=== PATIENT | female | born 1945 | race Caucasian/White ===

== ENCOUNTER → 2016-05-24 | Outpatient (CLI) | payer MEDICARE ==
[~2016-05-24] MED LIST: ASPI-558 PO; BENA20TA PO; CALC-603 PO; CHOL10003 PO; LEVO88TA39 PO; MULT1CAP47 PO; POTA99TA16 PO; SIMV40TA82 PO; TRIA1TAB72 PO
== END ==
LOC: WC.BC 13:15
DX: Z12.31 Encounter for screening mammogram for malignant neoplasm of breast (principal)
CPT/HCPCS: 77063; G0202

== ENCOUNTER 2016-10-16 09:57 | Observation (INO) ==
--- NOTE | 2016-10-16 10:08 | Emergency Department Report ---
Cardiac General HPI - General Chief Complaint: Arrhythmia/Palpitations Stated Complaint: rapid heartbeat Time Seen by Provider: 10/16/16 10:08 Source: patient Mode of arrival: ambulatory Limitations: no limitations - History of Present Illness HPI narrative: Patient is a 70-year-old female presents emergency room for evaluation of palpitations. Patient per chart review was seen in 2013 found to be in atrial fibrillation which spontaneously converted. Patient has seen her live out nanny Dr. Shields, however since the episodes were so few she felt that medications were not appropriate that time. Last conversation with Dr. Shields was one week ago. Since that time patient's had 8 or 9 episodes for on Sunday, 3 on Sunday, and 2 today. The one today lasted an hour, patient also felt very weak today so patient decided present to the ER for evaluation. On arrival patient states her symptoms are resolved and she is back to her "normal self". Occurred At: home Onset (ago): hour(s) - Related Data Home Medications Medication Instructions Recorded Confirmed Aspirin [Aspir 81] 81 mg PO DAILY #0 01/06/08 10/16/16 Benazepril HCl [Lotensin] 20 mg PO DAILY #0 01/06/08 10/16/16 Simvastatin 40 mg PO DAILY #0 01/06/08 10/16/16 Triamterene/Hydrochlorothiazid 1 tab PO DAILY #0 01/06/08 10/16/16 [Maxzide 37.5 mg-25 mg Tablet] Potassium Gluconate [Potassium] 99 mg PO TID #0 09/26/12 10/16/16 Calcium Carbonate/Vitamin D3 2 tab PO DAILY 10/16/16 10/16/16 [Calcium 600 + Vit D Tablet] Cholecalciferol (Vitamin D3) 2,000 unit PO DAILY 10/16/16 10/16/16 [Vitamin D3] Flaxseed Oil/[place] 3,6,9 [Sv 1 cap PO DAILY 10/16/16 10/16/16 Flaxseed Oil 1,300 mg Sftgl] Levothyroxine Sodium 75 mcg PO ACB 10/16/16 10/16/16 Multivitamin [Multivitamins] 1 cap PO DAILY 10/16/16 10/16/16 Polyvinyl Alcohol/Povidone O/S 1 drop EACH EYE TID PRN 10/16/16 10/16/16 [Refresh Classic] Allergies Allergy/AdvReac Type Severity Reaction Status Date / Time No Known Drug Allergies Allergy Unknown Verified 10/16/16 10:03 Review of Systems Constitutional: Reports: weakness (now resolved). Denies: fever, chills ENT: Denies: throat pain, dental pain Cardiovascular: Denies: chest pain, palpitations, dyspnea on exertion Respiratory: Denies: cough, dyspnea, wheezes Gastrointestinal: Denies: abdominal pain, nausea, vomiting Musculoskeletal: Denies: back pain Neurological: Denies: headache, weakness, numbness Psychiatric: Denies: anxiety, depression Endocrine: Denies: fatigue, heat or cold intolerance PFSH Patient Stated Medical History Hearing Loss Yes Other HEENT Yes: wears glasses Cardiac Arrhythmia Yes: afib Hypertension Yes Other GI Yes: DIVERTICULITIS Osteoarthritis Yes: HANDS, KNEES Post Menopausal Yes Surgical History: ASD repair - Social History Smoking status: Never smoker Substance use type: does not use Alcohol intake frequency: does not drink Physical Exam - General General appearance: alert, in no apparent distress - ENT ENT exam: Present: normal oropharynx, mucous membranes moist - Neck Neck exam: Present: full ROM - Chest Chest inspection: Present: symmetric chest wall rise. Absent: tenderness - Respiratory Respiratory exam: Present: normal lung sounds bilaterally. Absent: respiratory distress, wheezes, stridor - Cardiovascular Cardiovascular exam: Present: regular rate, normal rhythm, normal heart sounds - Abdominal Exam Abdominal exam: Present: soft. Absent: distention, tenderness - Extremities Exam Extremities exam: Present: normal capillary refill. Absent: tenderness - Back Exam Back exam: Present: full ROM. Absent: tenderness - Skin Skin exam: Present: warm, dry - Neurological Exam Neurological exam: Present: alert, oriented X3 - Psychiatric Psychiatric exam: Present: normal affect, normal mood Course Vital Signs Temperature 98.6 F 10/16/16 10:03 Pulse Rate 76 10/16/16 10:03 Respiratory Rate 19 10/16/16 10:03 Blood Pressure 108/69 10/16/16 10:03 Pulse Oximetry 95 10/16/16 10:03 Temperature 98.6 F 10/16/16 10:03 Pulse Rate 76 10/16/16 10:03 Respiratory Rate 19 10/16/16 10:03 Blood Pressure 108/69 10/16/16 10:03 Pulse Oximetry 95 10/16/16 10:03 Cardiac General - MDM Narrative Medical decision making narrative: Discuss case with Tess Theodore APRN. We'll admit observation status to surgical for antiarrhythmic therapy, patient is amenable to this - Differential Diagnosis Differential diagnosis: Likely: palpitations, anxiety, sinus tachycardia, artial fibrillation, artial flutter, ventricular premature beats, supraventricular tachycardia, ventricular tachycardia, WPW - Medical Records Attestation: I reviewed the patient's medical records. - Lab Data Attestation: I reviewed the patient's lab results. Result diagrams: 10/16/16 10:17 10/16/16 10:17 Lab Results 10/16/16 10/16/16 10/16/16 Range/Units 10: 10: 11:37 WBC 7.0 (4.5-11.0) T/MM3 RBC 5.26 H (4.00-5.20) M/MM3 Hgb 15.2 (12-16) GM/DL Hct 45.9 (36-46) % MCV 87.3 (80-100) UM3 MCH 28.9 (26-34) UUG MCHC 33.1 (31-37) GM/DL RDW Std Deviation 45.6 (36.9-50.2) FL Plt Count 238 (130-400) T/MM3 MPV 11.4 (9.4-12.4) UM3 Immature Gran % (Auto) 0.3 (0.0-0.5) % Neut % (Auto) 64.5 (33-66) % Lymph % (Auto) 25.0 (23-45) % [place] % (Auto) 6.9 (0-9.0) % Eos % (Auto) 3.0 (0-4) % Baso % (Auto) 0.3 (0-2) % Neut # 4.5 (1.8-7.7) T/MM3 Lymph # 1.8 (1-4.8) T/MM3 [place] # 0.5 (0-0.8) T/MM3 Eos # 0.2 (0-0.5) T/MM3 Baso # 0.0 (0-0.2) T/MM3 Abs Immat Gran (auto) 0.02 (0.00-0.03) T/MM3 Turbidity < 20 (0-20) Sodium 141 (134-144) MEQ/L Potassium 3.6 (3.6-5) MEQ/L Chloride 103 (98-107) MEQ/L Carbon Dioxide 28 (22-30) MEQ/L Anion Gap 10 (5-15) MEQ/L BUN 18.0 H (7-17) MG/DL Creatinine 1.0 (0.7-1.2) MG/DL GFR Calculation 55 BUN/Creatinine Ratio 18 (6-26) RATIO Glucose 114 H (65-110) MG/DL Calculated Osmolality 274 (261-280) MOSM/KG Calcium 9.3 (8.4-10.2) MG/DL Magnesium 1.9 (1.6-2.3) MG/DL Total Bilirubin 0.80 (0.20-1.30) MG/DL Icterus Index < 2 (0-7) AST 26 (14-36) U/L ALT 34 (9-52) U/L Alkaline Phosphatase 65 (38-126) U/L Troponin I < 0.012 (0-0.12) ng/ml Total Protein 7.2 (6.3-8.2) G/DL Albumin 4.3 (3.5-5.0) G/DL Globulin 2.9 (2.4-3.6) G/DL Albumin/Globulin Ratio 1.5 (1.1-2.2) RATIO TSH 4.48 (0.47-4.68) MIU/L Specimen Hemolysis 39 H (0-25) Ur Collection Type Urine, clean catch Urine Color Yellow (YELLOW) Urine Clarity Sl cloudy Urine pH 6.0 (5.0-8.0) Ur Specific [place] <=1.005 L (1.015-1.025) Urine Protein Negative (NEGATIVE) Urine Glucose (UA) Negative (NEGATIVE) Urine Ketones Negative (NEGATIVE) Urine Occult Blood Negative (NEGATIVE) Urine Nitrate Negative (NEGATIVE) Urine Bilirubin Negative (NEGATIVE) Urine Urobilinogen 0.2 (NORMAL) EU/DL Ur Leukocyte Esterase 3+ A (NEGATIVE) - Radiology Data Attestation: I reviewed the patient's radiology results. Chest x-ray: No acute cardiopulmonary findings - EKG Data EKG #1 EKG attestation: Yes: I reviewed and interpreted this EKG. EKG shows normal: sinus rhythm Rate: normal Rhythm: NSR [place]/QRS: RBBB Interpretation: no acute changes Disposition Clinical Impression: Atrial fibrillation Qualifiers: Atrial fibrillation type: paroxysmal Qualified Code(s): I48.0 - Paroxysmal atrial fibrillation Disposition: [facility] Condition: Stable Prescriptions: No Action Simvastatin 40 mg PO DAILY #0 Aspirin [Aspir 81] 81 mg PO DAILY #0 Triamterene/Hydrochlorothiazid [Maxzide 37.5 mg-25 mg Tablet] 1 tab PO DAILY #0 Potassium Gluconate [Potassium] 99 mg PO TID #0 Calcium Carbonate/Vitamin D3 [Calcium 600 + Vit D Tablet] 2 tab PO DAILY Flaxseed Oil/[place] 3,6,9 [Sv Flaxseed Oil 1,300 mg Sftgl] 1 cap PO DAILY Cholecalciferol (Vitamin D3) [Vitamin D3] 2,000 unit PO DAILY Multivitamin [Multivitamins] 1 cap PO DAILY Levothyroxine Sodium 75 mcg PO ACB Benazepril HCl [Lotensin] 20 mg PO DAILY #0 Polyvinyl Alcohol/Povidone O/S [Refresh Classic] 1 drop EACH EYE TID PRN PRN Reason: Prn Orders Referrals: Orville Phillips DO [Physician] - Time of Disposition: 11:44 - Seen By: physician
[2016-10-16] MEDS: SALINE FLUSH 10ml SYRINGE IVF PRN ×2 (10:26→10:32)
--- NOTE | 2016-10-16 10:45 | XRay Report ---
EXAM: XR chest 1V HISTORY: tachycardia not feeling well COMPARISON: Prior chest x-ray dated 09/16/[address] scan of the chest dated 08/24/2010. FINDINGS: The cardiomediastinal silhouette is stable again showing changes of prior coronary artery bypass grafting. The mediastinum is not widened. The trachea is midline. The pulmonary vascularity is not engorged. There is again noted soft tissue fullness in the hilar regions bilaterally that is unchanged, consistent with enlargement of the central pulmonary arteries right greater than left suggesting pulmonary arterial hypertension. The lung kennedy show increase in the interstitial markings that appear chronic. No acute focal airspace consolidation is seen. The costophrenic angles are sharp. The bony thorax is stable again showing median sternotomy wires in place. IMPRESSION: 1. Mild chronic changes are again evident in the lung kennedy. 2. Stable prominence of the pulmonary arteries consistent with pulmonary arterial hypertension. 3. Prior CABG. .
--- OUTSIDE RECORDS SUMMARY | 2016-10-16 11:25 | External Medical Summary | Referral Summary ---
:1945 Author Organization [facility], [facility] Address [address] [place] [address] [place] [id number] Care Team Providers Name Role Phone Orville Phillips Primary Care Physician Encounter VC Date(s): 10/24/14 - 10/24/14 [facility], [address] [place] [id number]- Discharge Diagnosis: Acute sinusitis Discharge Disposition: 01-Home or Self Care Attending Physician: Delfin Bourgeois MD Admitting Physician: Delfin Bourgeois MD Vital Signs Most recent to oldest [Reference Range]: 1 Temperature Tympanic [36.6-38.1 degC] 36.7 degC (10/24/14 10:53 AM) Peripheral Pulse Rate [60-100 bpm] 74 bpm (10/24/14 10:53 AM) Blood Pressure [90-140/60-90 mmHg] 122/78 mmHg (10/24/14 10:53 AM) SpO2 95 % (10/24/14 10:53 AM) Problem List No data available for this section Allergies, Adverse Reactions, Alerts No Known Medication Allergies Medications aspirin 0 Refill(s) Start Date: 10/24/14 Status: Orderedbenazepril 20 mg oral tablet mg tabs, Oral, Daily, 0 Refill(s) Start Date: 10/24/14 Status: OrderedCalcium 500+D tabs, Chewed, BID, 0 Refill(s) Start Date: 10/24/14 Status: Orderedibuprofen 0 Refill(s) Start Date: 10/24/14 Status: Orderedmultivitamin Daily, 0 Refill(s) Start Date: 10/24/14 Status: Orderedpotassium citrate Oral, 0 Refill(s) Start Date: 10/24/14 Status: Orderedsimvastatin 40 mg oral tablet 40 mg 1 tabs, Oral, Bedtime (once a day), # 30 tabs, 0 Refill(s) Start Date: 10/24/14 Status: OrderedSynthroid 88 mcg (0.088 mg) oral tablet 88 mcg 1 tabs, Oral, Daily, # 30 tabs, 0 Refill(s) Start Date: 10/24/14 Status: Orderedtriamterene-hydrochlorothiazide 37.5 mg-25 mg oral tablet 1 tabs, Oral, Daily, # 30 tabs, 0 Refill(s) Start Date: 10/24/14 Status: OrderedTylenol Caplet mg, Oral, q4hr, 0 Refill(s) Start Date: 10/24/14 Status: Ordered Results No data available for this section Immunizations No data available for this section Procedures No data available for this section Social History Social History Type Response Smoking Status Never smoker Assessment and Plan Extracted from: Title: Office Visit Note Author: Delfin Bourgeois MD Date: 10/24/14 Assessment/Plan Acute sinusitis I've recommended Augmentin 875 one by mouth twice a day 10 days. Mucinex may be helpful. Tylenol as needed for soreness or discomfort. If symptoms persist or worsen or further problems develop follow- up. Ordered: Office Visit Level 3 Est [id number] Orders: amoxicillin-clavulanate, 1 tabs, Oral, q12hr, X 10 days, # 20 tabs, 0 Refill(s), Pharmacy: [id number]
--- NOTE | 2016-10-16 12:27 | Cardiology History & Physical ---
History of Present Illness Chief complaint: Atrial fibrillation HPI: Angela is a 70-year-old female who is well known to Dr. Shields with a history of atrial fibrillation, thoracic aortic aneurysm, atrial septal defect repair, pulmonary HTN and HTN who presented earlier today to the ED for evaluation of palpitations. She was also seen in 2013 and found to be in atrial fibrillation which spontaneously converted. She was last seen by Dr. Shields's practice one week ago. Since that time patient's had 8 or 9 episodes, 4 on Sunday, 3 on Sunday, and 2 today. The one today lasted an hour, patient also felt very weak today so patient decided present to the ER for evaluation. On arrival patient states her symptoms are resolved and she is back to her "normal self". She has been hesitant in the past to consider antiarrhythmic therapy and anticoagulation , today however she is willing. She is being admitted to Dr. Shields for observation and to start antiarrhythmic therapy. Review of Systems - Constitutional Constitutional: Present: fatigue (today). Absent: chills, fever(s), weakness - EENMT Eyes: Absent: change in vision Balance: Absent: vertigo Mouth/Throat: Absent: sore throat, scratchy throat - Cardiovascular Cardiovascular: Present: palpitations (8-9 episodes the last few days). Absent : chest pain, syncope, dyspnea on exertion Vascular: Absent: pedal edema - Respiratory Respiratory: Absent: cough, dyspnea - Gastrointestinal Gastrointestinal: Absent: diarrhea, nausea, vomiting - Genitourinary Genitourinary: Present: flank pain. Absent: dysuria, hematuria - Musculoskeletal Musculoskeletal: Present: back pain - Integumentary/Breasts Integumentary: Absent: rash - Neurological Neurological: Absent: dizziness - Endocrine Endocrine: Present: palpitations. Absent: polyuria PFSH Aspiration pneumonia Arthritis Diverticulitis Hearing loss (right) HTN Meniere's disease Thyroid mass Surgical History: ASD repair 1992. Tubal ligation. torn meniscus 2005. cholecystectomy Family History: Mother - CHF - Social History Smoking status: Never smoker Substance use type: does not use Alcohol intake frequency: holidays/special occasions only Household members: none Current occupational status: retired Current residence: Apartment/Private Home Medications Home Medications Medication Instructions Recorded Confirmed Type Benazepril HCl [Lotensin] 20 mg PO DAILY #0 01/06/08 10/16/16 History Simvastatin 40 mg PO DAILY #0 01/06/08 10/16/16 History Triamterene/Hydrochlorothiazid 1 tab PO DAILY #0 01/06/08 10/16/16 History [Maxzide 37.5 mg-25 mg Tablet] Potassium Gluconate [Potassium] 3 tab PO AM #0 09/26/12 10/17/16 History Calcium Carbonate/Vitamin D3 2 tab PO DAILY 10/16/16 10/16/16 History [Calcium 600 + Vit D Tablet] Cholecalciferol (Vitamin D3) 2,000 unit PO DAILY 10/16/16 10/16/16 History [Vitamin D3] Flaxseed Oil/[place] 3,6,9 [Sv 1 cap PO DAILY 10/16/16 10/16/16 History Flaxseed Oil 1,300 mg Sftgl] Levothyroxine Sodium 75 mcg PO ACB 10/16/16 10/16/16 History Multivitamin [Multivitamins] 1 cap PO DAILY 10/16/16 10/16/16 History Polyvinyl Alcohol/Povidone O/S 1 drop EACH EYE TID PRN 10/16/16 10/16/16 History [Refresh Classic] Allergies Allergy/AdvReac Type Severity Reaction Status Date / Time No Known Drug Allergies Allergy Unknown Verified 10/16/16 10:03 Exam Vital signs: Temperature 98.6 F 10/16/16 10:03 Pulse Rate 76 10/16/16 10:03 Respiratory Rate 19 10/16/16 10:03 Blood Pressure 108/69 10/16/16 10:03 Pulse Oximetry 95 10/16/16 10:03 - Constitutional no acute distress, well nourished, well developed, cooperative - Routine HEENT Exam Head: Present: normocephalic ENT: Present: mucous membranes moist - Routine Neck Exam Absent: JVD, carotid bruit - Routine Chest/Breast/Axilla Exam Chest wall: Absent: tenderness - Routine Respiratory Exam Present: CTA bilaterally. Absent: rales, wheezes - Routine Cardiovascular Exam Present: RRR, murmur (I/). Absent: JVD - Routine Abdominal Exam Present: soft, normoactive bowel sounds - Routine Extremities Exam Present: no edema - Routine Skin Exam Present: intact, dry, warm - Routine Neurological Exam Present: alert, oriented X3 - Routine Psychiatric Exam Present: normal affect, normal thought process Results 10/16/16 10:17 10/17/16 04:55 - Imaging and Cardiology EKG results: image reviewed Imaging & Cardiology Narrative: 10/16/16 14:26 Date of Exam: 10/16/16 Ordering Provider: Prashanth Barnard MD Type of Exam(s): XR chest 1V Reason for Exam(s): tachycardia not feeling well EXAM: XR chest 1V HISTORY: tachycardia not feeling well COMPARISON: Prior chest x-ray dated 09/16/[address] scan of the chest dated 08/24/2010. FINDINGS: The cardiomediastinal silhouette is stable again showing changes of prior coronary artery bypass grafting. The mediastinum is not widened. The trachea is midline. The pulmonary vascularity is not engorged. There is again noted soft tissue fullness in the hilar regions bilaterally that is unchanged, consistent with enlargement of the central pulmonary arteries right greater than left suggesting pulmonary arterial hypertension. The lung kennedy show increase in the interstitial markings that appear chronic. No acute focal airspace consolidation is seen. The costophrenic angles are sharp. The bony thorax is stable again showing median sternotomy wires in place. IMPRESSION: 1. Mild chronic changes are again evident in the lung kennedy. 2. Stable prominence of the pulmonary arteries consistent with pulmonary arterial hypertension. 3. Prior CABG. Note: Patient denies CABG, but rather had ASD repair. - EKG Interpretation EKG: sinus rhythm EKG interpretations - EKG EKG results cardiology: WNL, sinus rhythm Hospital Course This is a general summary of the patient's hospital course. For more details refer to the complete medical record. Time spent with patient: 25 - 35 minutes DVT Prophylaxis: Eliquis Assessment and Plan (1) UTI (urinary tract infection), uncomplicated Status: Acute Keflex 500mg po Q12H X 7days (2) Atrial fibrillation Status: Acute Start antiarrhythmic therapy with Flecainide 50mg PO BID and Eliquis 5mg PO BID for anticoagulation for stroke prevention. Monitor cardiac telemetry and repeat Lab and EKG in the morning (3) Thoracic aortic aneurysm without rupture Status: Chronic Stable, Next echo for routine monitoring on 04/17/17 (4) Atrial septal defect Status: Chronic Repaired. Stable, Next echo for routine monitoring on 04/17/17 (5) Essential (primary) hypertension Status: Chronic Well controlled on medical therapy, continue current therapy - Attestation Attestation Narrative: 10/19/16 10:28 Recommendation After examining the patient I agree with the above assessment. I am involved in the formulation of the patient's plan of care.
[2016-10-16 12:29] VITALS: BMI 31.0
[2016-10-16 12:48] VITALS: RESP 16
[2016-10-16] MEDS: FLECAINIDE 50 MG TABLET PO SCH ×2 (12:52→21:20)
[2016-10-16] MEDS: APIXABAN 5 MG TABLET PO SCH ×2 (12:58→21:20)
[2016-10-17] MEDS: SALINE FLUSH 10ml SYRINGE IVF PRN (04:59)
[2016-10-17 07:28] VITALS: BP 116/66; TEMP 97.6; O2SAT 93
[2016-10-17] MEDS: FLECAINIDE 50 MG TABLET PO SCH (08:06)
[2016-10-17] MEDS: APIXABAN 5 MG TABLET PO SCH (08:06)
[2016-10-17] MEDS ORDERED: REFRESH CLASSIC Eye Drops 0.4ml EACH EYE PRN (08:55)
[2016-10-17] MEDS ORDERED: TRIAMTERENE/HCTZ 37.5 MG-25 MG TABLET PO SCH (09:00)
[2016-10-17] MEDS ORDERED: ASPIRIN *EC* 81 MG TABLET PO SCH (09:00)
[2016-10-17] MEDS ORDERED: OMEGA-3 ACID ESTERS 1 GM CAPSULE PO SCH (09:00)
[2016-10-17] MEDS ORDERED: MULTI-VITAMIN PLAIN TABLET PO SCH (09:00)
[2016-10-17] MEDS ORDERED: BENAZEPRIL 20 MG PO SCH (09:00)
[2016-10-17] MEDS ORDERED: CALCIUM 500 + VIT D 200 TABLET PO SCH (09:00)
--- NOTE | 2016-10-17 11:33 | Discharge Summary ---
<Tess Theodore - Last Filed: 10/17/16 11:30> Discharge Information Date of admission: 10/16/16 12:07 Anticipated date of discharge: 10/17/16 Attending Physician: Mich Shields MD Primary care physician: Juany Mendez DO - Laboratory Labs: 10/17/16 04:55 Laboratory Results - last 48 hr 10/16/16 10/16/16 10/16/16 10:17 10:17 11:37 WBC 7.0 RBC 5.26 H Hgb 15.2 Hct 45.9 MCV 87.3 MCH 28.9 MCHC 33.1 RDW Std Deviation 45.6 Plt Count 238 MPV 11.4 Immature Gran % (Auto) 0.3 Neut % (Auto) 64.5 Lymph % (Auto) 25.0 Will % (Auto) 6.9 Eos % (Auto) 3.0 Baso % (Auto) 0.3 Neut # 4.5 Lymph # 1.8 Will # 0.5 Eos # 0.2 Baso # 0.0 Abs Immat Gran (auto) 0.02 Turbidity < 20 Sodium 141 Potassium 3.6 Chloride 103 Carbon Dioxide 28 Anion Gap 10 BUN 18.0 H Creatinine 1.0 GFR Calculation 55 BUN/Creatinine Ratio 18 Glucose 114 H Calculated Osmolality 274 Calcium 9.3 Magnesium 1.9 Total Bilirubin 0.80 Icterus Index < 2 AST 26 ALT 34 Alkaline Phosphatase 65 Troponin I < 0.012 Total Protein 7.2 Albumin 4.3 Globulin 2.9 Albumin/Globulin Ratio 1.5 TSH 4.48 Specimen Hemolysis 39 H Ur Collection Type Urine, clean catch Urine Color Yellow Urine Clarity Sl cloudy Urine pH 6.0 Ur Specific Duncan <=1.005 L Urine Protein Negative Urine Glucose (UA) Negative Urine Ketones Negative Urine Occult Blood Negative Urine Nitrate Negative Urine Bilirubin Negative Urine Urobilinogen 0.2 Ur Leukocyte Esterase 3+ A Urine RBC 0-1 Urine WBC 10-20 H Ur Squamous Epith Cells 20-50 Ur Transition Epith Cell 0-1 Urine Bacteria 2+ H Ur Culture Indicated? Cult reflexed &setup 10/17/16 04:55 WBC RBC Hgb Hct MCV MCH MCHC RDW Std Deviation Plt Count MPV Immature Gran % (Auto) Neut % (Auto) Lymph % (Auto) Will % (Auto) Eos % (Auto) Baso % (Auto) Neut # Lymph # Will # Eos # Baso # Abs Immat Gran (auto) Turbidity < 20 Sodium 139 Potassium 3.1 L Chloride 99 Carbon Dioxide 32 H Anion Gap 8 BUN 16.0 Creatinine 1.0 GFR Calculation 55 BUN/Creatinine Ratio 16 Glucose 94 Calculated Osmolality 269 Calcium 8.8 Magnesium 2.0 Total Bilirubin Icterus Index < 2 AST ALT Alkaline Phosphatase Troponin I Total Protein Albumin Globulin Albumin/Globulin Ratio TSH Specimen Hemolysis < 15 Ur Collection Type Urine Color Urine Clarity Urine pH Ur Specific Duncan Urine Protein Urine Glucose (UA) Urine Ketones Urine Occult Blood Urine Nitrate Urine Bilirubin Urine Urobilinogen Ur Leukocyte Esterase Urine RBC Urine WBC Ur Squamous Epith Cells Ur Transition Epith Cell Urine Bacteria Ur Culture Indicated? - Radiology Radiology: Date of Exam: 10/16/16 Ordering Provider: Prashanth Barnard MD Type of Exam(s): XR chest 1V Reason for Exam(s): tachycardia not feeling well EXAM: XR chest 1V HISTORY: tachycardia not feeling well COMPARISON: Prior chest x-ray dated 09/16/[address] scan of the chest dated 08/24/2010. FINDINGS: The cardiomediastinal silhouette is stable again showing changes of prior coronary artery bypass grafting. The mediastinum is not widened. The trachea is midline. The pulmonary vascularity is not engorged. There is again noted soft tissue fullness in the hilar regions bilaterally that is unchanged, consistent with enlargement of the central pulmonary arteries right greater than left suggesting pulmonary arterial hypertension. The lung kennedy show increase in the interstitial markings that appear chronic. No acute focal airspace consolidation is seen. The costophrenic angles are sharp. The bony thorax is stable again showing median sternotomy wires in place. IMPRESSION: 1. Mild chronic changes are again evident in the lung kennedy. 2. Stable prominence of the pulmonary arteries consistent with pulmonary arterial hypertension. 3. Prior CABG. Note: Patient has not had CABG, She had ASD repair History of Present Illness HPI: Angela is a 70-year-old female who is well known to Dr. Shields with a history of atrial fibrillation, thoracic aortic aneurysm, atrial septal defect repair, pulmonary HTN and HTN who presented earlier today to the ED for evaluation of palpitations. She was also seen in 2013 and found to be in atrial fibrillation which spontaneously converted. She was last seen by Dr. Shields's practice one week ago. Since that time patient's had 8 or 9 episodes, 4 on Sunday, 3 on Sunday, and 2 today. The one today lasted an hour, patient also felt very weak today so patient decided present to the ER for evaluation. On arrival patient states her symptoms are resolved and she is back to her "normal self". She has been hesitant in the past to consider antiarrhythmic therapy and anticoagulation , today however she is willing. She is being admitted to Dr. Shields for observation and to start antiarrhythmic therapy. Hospital Course This is a general summary of the patient's hospital course. For more details refer to the complete medical record. Hospital course: 10/16/16 Admitted for observation, started on Flecainide 50mg BID. Started on Eliquis 5mg BID for stroke prevention. Incidentally was found to have a UTI and was started on Keflex 500mg BID x 1 week. Instructed to follow up with her PCP regarding the urinary infection Exam Vital signs: Temperature 97.6 F 10/17/16 07:00 Pulse Rate 58 L 10/17/16 07:48 Respiratory Rate 16 10/17/16 07:00 Blood Pressure 116/66 10/17/16 07:00 Pulse Oximetry 93 10/17/16 07:00 Oxygen Delivery Method Room Air - Constitutional no acute distress, well developed, cooperative - Routine HEENT Exam Head: Present: normocephalic ENT: Present: mucous membranes moist - Routine Neck Exam Absent: JVD, carotid bruit - Routine Chest/Breast/Axilla Exam Chest wall: Absent: tenderness - Routine Respiratory Exam Present: CTA bilaterally. Absent: rales, wheezes - Routine Cardiovascular Exam Present: RRR, murmur (I/). Absent: JVD - Routine Abdominal Exam Present: soft, normoactive bowel sounds - Routine Extremities Exam Present: no edema - Routine Skin Exam Present: intact, dry, warm - Routine Neurological Exam Present: alert, oriented X3 - Routine Psychiatric Exam Present: normal affect, normal thought process Results 10/16/16 10:17 10/17/16 04:55 Comprehensive Metabolic Panel 10/17/16 Range/Units 04:55 Sodium 139 (134-144) MEQ/L Potassium 3.1 L (3.6-5) MEQ/L Chloride 99 (98-107) MEQ/L Carbon Dioxide 32 H (22-30) MEQ/L BUN 16.0 (7-17) MG/DL Creatinine 1.0 (0.7-1.2) MG/DL Glucose 94 (65-110) MG/DL Calcium 8.8 (8.4-10.2) MG/DL Intake and Output 10/16/16 10/17/16 10/17/16 22:59 06:59 14:59 Intake Total 960 / 960 350 / 350 190 / 190 Balance 960 / 960 350 / 350 190 / 190 Intake: Oral 960 / 960 350 / 350 190 / 190 Other: Urine Appearance Clear Clear Urine Color Yellow Pale Yellow Urine Odor Normal Normal # Voids 1 1 1 Weight 183 lb 6.793 oz Patient Weight 10/18/16 06:59 Weight 183 lb 6.793 oz Discharge Plan - Med Rec/Dispo Referrals/Follow Up: Mich Shields MD [Physician] - 11/07/16 9:30 am [facility] Instructions: A-fib (Atrial Fibrillation) (DC) Additional Instructions: Follow up with PCP regarding the urinary infection Prescriptions: New Apixaban [Eliquis] 5 mg PO BID #60 tab Flecainide [Tambocor] 50 mg PO Q12HR #60 tab CephALEXin [Keflex] 500 mg PO Q12HR #12 cap Continue Simvastatin 40 mg PO DAILY #0 Triamterene/Hydrochlorothiazid [Maxzide 37.5 mg-25 mg Tablet] 1 tab PO DAILY #0 Potassium Gluconate [Potassium] 3 tab PO AM #0 Calcium Carbonate/Vitamin D3 [Calcium 600 + Vit D Tablet] 2 tab PO DAILY Flaxseed Oil/[place] 3,6,9 [Sv Flaxseed Oil 1,300 mg Sftgl] 1 cap PO DAILY Cholecalciferol (Vitamin D3) [Vitamin D3] 2,000 unit PO DAILY Multivitamin [Multivitamins] 1 cap PO DAILY Levothyroxine Sodium 75 mcg PO ACB Benazepril HCl [Lotensin] 20 mg PO DAILY #0 Polyvinyl Alcohol/Povidone O/S [Refresh Classic] 1 drop EACH EYE TID PRN PRN Reason: Prn Orders Discontinued Aspirin [Aspir 81] 81 mg PO DAILY #0 - Disposition 01 Discharged Home, Self-Care <Mich Shields - Last Filed: 10/19/16 10:32> Discharge Information Date of admission: 10/16/16 12:07 Attending Physician: Mich Shields MD Primary care physician: Juany Mendez DO - Laboratory Labs: 10/17/16 04:55 Hospital Course This is a general summary of the patient's hospital course. For more details refer to the complete medical record. Exam Vital signs: Temperature 97.6 F 10/17/16 07:00 Pulse Rate 58 L 10/17/16 10:26 Respiratory Rate 16 10/17/16 07:00 Blood Pressure 116/66 10/17/16 07:00 Pulse Oximetry 93 10/17/16 07:00 Results 10/16/16 10:17 10/17/16 04:55 Discharge Plan - Med Rec/Dispo - Attestation Attestation Narrative: 10/19/16 10:32 Recommendation After examining the patient I agree with the above assessment. I am involved in the formulation of the patient's plan of care.
[2016-10-17 12:51] VITALS: PULSE 58
[2016-10-17] MEDS ORDERED: POM SIMVASTATIN 40 MG TABLET PO SCH (21:00)
[2016-10-18] MEDS ORDERED: POM LEVOTHYROXINE 75 MCG TABLET PO SCH (06:30)
== END 2016-10-17 12:20 | disposition home or self-care (01) ==
LOC: SRG 09:57 → ED 09:57 → SRG 12:20
PROVIDERS: ADMIT Internal Medicine Cardiovascular Disease; ATTEND Internal Medicine Cardiovascular Disease